=== PATIENT | female | born 1990 | race African-American/Black ===

== ENCOUNTER 2019-04-23 05:30 | Inpatient (IN) ==
[2019-04-23] MEDS ORDERED: KEFZOL 1 GM/D5W 1 GM/50 ML IVPB IV PRN (05:32)
[2019-04-23] MEDS ORDERED: REGLAN PO ONE (05:32)
[2019-04-23] MEDS ORDERED: PEPCID PO ONE (05:32)
[2019-04-23] MEDS: LR 1,000 ML IV SCH ×2 (06:00→06:36)
[2019-04-23 06:05] LABS: URINE SOURCE VOIDED
[2019-04-23 06:15] LABS: BASO# 0.01 X1000 (0.0-0.2); BASO% 0.2 % (0.0-0.8); EOS# 0.04 X1000 (0.0-0.7); EOS% 0.6 % (0.0-10.0); HEMATOCRIT 33.1 % (37.0-47.0); HEMOGLOBIN 10.6 g/dL (12.0-16.0); IMM GRAN# 0.02 X1000 (0.0-0.04); IMM GRAN% 0.3 % (0.0-0.5); LYMPH# 1.92 X1000 (1.2-3.4); LYMPH% 29.4 % (20.5-51.1); MCH 27.5 PG (27-31); MONO# 0.75 X1000 (0.11-0.59); MONO% 11.5 % (1.7-9.3); MPV 12.9 FL (7.4-10.4); NEUT# 3.79 X1000 (1.4-6.5); PLT 124 X1000 (130-400); RBC 3.85 XMIL (4.2-5.4); RDW 14.2 % (11.5-14.5); WBC 6.53 X1000 (4.8-10.8)
[2019-04-23 06:28] LABS: BILIRUBIN URINE NEGATIVE (NEGATIVE); BLOOD URINE NEGATIVE (NEGATIVE); CLARITY CLEAR (CLEAR); COLOR YELLOW; GLUCOSE URINE NEGATIVE (NEGATIVE); KETONE URINE TRACE mg/dL (NEGATIVE); LEUKOCYTES URINE TRACE (NEGATIVE); NITRITE URINE NEGATIVE (NEGATIVE); PH URINE 6.5; PROTEIN URINE TRACE mg/dL (NEGATIVE); SP GRAVITY URINE 1.015; UROBILINOGEN URINE NORMAL
[2019-04-23 06:35] LABS: UR AMPHETAMINES QUAL NONE DETECTED (NONE DETECT); UR BARBITUATES QUAL NONE DETECTED (NONE DETECT); UR BENZODIAZEPIN QUAL NONE DETECTED (NONE DETECT); UR CANNABINOIDS QUAL NONE DETECTED (NONE DETECT); UR COCAINE QUAL NONE DETECTED (NONE DETECT); UR METHADONE QUAL NONE DETECTED (NONE DETECT); UR METHAMPHETAMINE QUAL NONE DETECTED (NONE DETECT); UR OPIATES QUAL NONE DETECTED (NONE DETECT); UR OXYCODONE QUAL NONE DETECTED (NONE DETECT); UR PCP QUAL NONE DETECTED (NONE DETECT); UR PROPOXYPHENE QUAL NONE DETECTED (NONE DETECT); UR TCA QUAL NONE DETECTED (NONE DETECT)
[2019-04-23] MEDS ORDERED: DURAMORPH ONE (07:07)
[2019-04-23] MEDS ORDERED: PITOCIN ONE ×2 (07:35)
[2019-04-23] MEDS ORDERED: TORADOL IV SCH (09:00)
[2019-04-23] MEDS ORDERED: NARCAN INJ PRN (09:15)
[2019-04-23] MEDS ORDERED: ZOFRAN ODT PO PRN (09:15)
[2019-04-23] MEDS ORDERED: ZOFRAN IV PRN ×2 (09:15)
--- NOTE | 2019-04-23 10:30 | HISTORY AND PHYSICAL ---
HISTORY OF PRESENT ILLNESS: Ms. Hamilton is a 28-year-old G4, P-0-0-3 at 38 weeks and 2 days, who presents to Labor and Delivery for scheduled repeat section with bilateral tubal ligation. Patient reports good movement. Denies contractions, leakage of fluid or vaginal bleeding. Current is significant for gestational diabetes, diet controlled, for which patient received serial growth scans via [facility]. Maternal [facility] recommended delivery between 38 and 39 weeks' gestation. PAST MEDICAL HISTORY: Gestational diabetes, diet controlled. PAST SURGICAL HISTORY: delivery x3. OB HISTORY: G4, P 3-0-0-3, 3 full-term C-sections. 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 FAMILY HISTORY: Noncontributory. ALLERGIES: No known drug allergies. SOCIAL HISTORY: Denies tobacco, alcohol, or drug use. MEDICATIONS: vitamins, Valtrex for prophylaxis. VITAL SIGNS: Temperature 97 degrees Fahrenheit, pulse rate 91, respirations 16, blood pressure 152/80, O2 saturation 99% on room air, weight 232 pounds, height 5 feet 8 inches. PHYSICAL EXAMINATION: GENERAL: No acute distress. Alert, awake, oriented x3. CARDIOVASCULAR: Regular rate and rhythm. Positive S1, S2. RESPIRATORY: Clear to auscultation bilaterally. ABDOMEN: Gravid, nontender to palpation, soft. Electronic monitoring category 1 tracing. Tocolysis negative for contractions. EXTREMITIES: No calf tenderness. LABORATORY STUDIES: WBC 6.53, hemoglobin 10.6, hematocrit 33.1, platelets 124,000. Glucose 77. RPR nonreactive. Rubella nonimmune. ASSESSMENT: Ms. Hamilton is a 28-year-old 4, para 3-0-0-3 at 38 weeks and 2 days who presents for repeat delivery with bilateral tubal ligation. PLAN: 1. Admit to Labor and Delivery for repeat and bilateral tubal ligation. 2. IV antibiotics for prophylaxis, routine section labs. 3. Patient counseled on risks of repeat section, not limited to bleeding, infection, injury to surrounding organs including bowel, bladder, ureters, nerves and blood vessels. Patient understands risks and agrees to procedure. Patient also counseled the risks of female sterilization, risks not limited to regret, failure, ectopic . Patient understands risks and agrees to said procedure. 4. Continue with monitoring prior to procedure. 5. Rubella nonimmune. Will receive MMR post delivery. 6. Gestational diabetes, diet controlled. Will monitor blood sugars post procedure.
[2019-04-23] MEDS ORDERED: PITOCIN 20 UNITS/NS 20 UNITS/1,000 ML IV.SOLN ONE (10:31)
[2019-04-23] MEDS: BENADRYL IV PRN ×2 (10:36→22:02)
[2019-04-23] MEDS ORDERED: HYDROXYZINE IM PRN (12:44)
[2019-04-23] MEDS ORDERED: MYLICON PO PRN (12:44)
[2019-04-23] MEDS ORDERED: PITOCIN IM PRN (12:44)
[2019-04-23] MEDS ORDERED: M-M-R II VACCINE SUBQ ONE (12:44)
[2019-04-23] MEDS ORDERED: ATARAX PO PRN (12:44)
[2019-04-23] MEDS ORDERED: DEMEROL IM PRN (12:44)
[2019-04-23] MEDS ORDERED: PITOCIN 20 UNITS/NS 20 UNITS/1,000 ML IV.SOLN IV ONE (12:44)
[2019-04-23] MEDS ORDERED: DULCOLAX PR PRN (12:44)
[2019-04-23] MEDS ORDERED: BOOSTRIX VACCINE IM ONE (12:44)
[2019-04-23] MEDS ORDERED: DEMEROL PO PRN ×2 (12:44)
[2019-04-23] MEDS ORDERED: PHENERGAN IM PRN (12:44)
[2019-04-23] MEDS ORDERED: AMBIEN PO PRN (12:44)
[2019-04-23] MEDS: MYLICON PO SCH ×3 (14:54→21:01)
[2019-04-23] MEDS: PITOCIN 10 UNITS/NS 1,000 ML IV SCH (19:56)
[2019-04-23] MEDS: PERICOLACE PO SCH (21:01)
--- NOTE | 2019-04-23 21:42 | OPERATIVE NOTE ---
PROCEDURE DATE: 04/23/2019 SURGEON: Dr. Radu Foss. COMMUNITY ORGANIZATION AIDE: Dr. Maynor Desai. PREOPERATIVE DIAGNOSES: 1. Intrauterine at 38 weeks and 3 days. 2. Gestational diabetes, diet controlled. 3. Previous delivery x3. 4. Desires female sterilization. POSTOPERATIVE DIAGNOSES: 1. Intrauterine at 38 weeks and 3 days. 2. Gestational diabetes, diet controlled. 3. Previous delivery x3. 4. Desires female sterilization. PROCEDURE PERFORMED: 1. Repeat low transverse delivery. 2. Bilateral tubal ligation. ANESTHESIA: Spinal. ESTIMATED BLOOD LOSS: 750 mL. FINDINGS: A viable male infant, weighing 7 pounds 5 ounces. Apgars 7 and 9 at 1 and 5 minutes. Normal uterus, normal bilateral tubes and ovaries. COMPLICATIONS: None. SURGICAL RISKS: The patient was informed of the risks and benefits of the procedure. The risks included, but were not limited to, bleeding, infection, injury to internal organs and possible hysterectomy. Also discuss risk of bilateral tubal ligation, not limited to regret, failure and ectopic . The patient expressed understanding of the risks involved. All questions were answered and the patient consented to the procedure. DESCRIPTION OF PROCEDURE: The patient was taken to the operating room where a time-out was performed to confirm correct patient and correct procedure. Spinal anesthesia was adequately established, and prophylactic intravenous antibiotics was administered. The patient was placed in the dorsal supine position with a left tilt at the hips. The patient was then prepped and draped in the usual sterile fashion for a Pfannenstiel skin incision. An incision was made in the skin with a surgical scalpel, and sharp dissection was carried out over subsequent layers of tissue, including the fascia followed by the Bovie electrocautery for hemostasis. The fascia was incised at the midline and fascial incision was extended bilaterally using the Bovie electrocautery. The inferior edge of the fascial incision was grasped with Monika clamps, tented up and the underlying rectus muscle was dissected off bluntly with the Bovie electrocautery. Attention was then turned to the superior edge which was grasped with Monika clamps, tented up and the underlying rectus muscles were dissected off using Bovie electrocautery. The rectus muscle was then divided at the midline and the peritoneum was identified, tented up, at its upper margin taking care to avoid the bladder, and then entered bluntly. The peritoneal incision was extended superiorly and inferiorly using the Bovie electrocautery with good hemostasis of the bladder. Anterior abdominal wall adhesions were noted along the anterior aspect of the uterus and removed using the Bovie electrocautery. The bladder blade was inserted and the vesical peritoneum was identified. It was grasped with smooth pickups and cut laterally to both sides using the Metzenbaum scissors. A bladder flap was created using sharp dissection with the Metzenbaum scissors. The bladder blade was reinserted, and a transverse incision was made in the lower uterine segment using the scalpel. The uterine incision was extended bilaterally using blunt dissection. The amniotic sac was entered, and the amniotic fluid was noted to be clear. The surgeon's hand was placed into the uterine cavity. The head was identified, elevated into the abdomen and delivered through the uterine incision with the assistance of fundal pressure. The was examined for nuchal cord. No nuchal cord was identified. The infant was then delivered with traction and assistance of fundal pressure. The 's oral and nasal passages were bulb suctioned on delivery. The cord was clamped and cut. The was then passed off the table to the waiting tyre fitter staff for further care. Cord blood was obtained for analysis and routine blood testing. The placenta was manually extracted intact with a three-vessel cord. Oxytocin was administered by IV infusion to enhance uterine contraction. The uterus was exteriorized and cleared of all clots and remaining products of conception. The uterine incision was reapproximated using 1-0 Monocryl in a running locked fashion. Non-hemostatic areas were reinforced with 1-0 Monocryl in a figure- of-8 stitch. Prior abdominal wall adhesions removed from the anterior surface of the uterus obtain hemostasis using figure-of-8 stitch and 1-0 Monocryl suture as well as 3-0 Vicryl on a SH needle. Good hemostasis was obtained. Attention was then turned to the bilateral tubes. The isthmic portion of the left fallopian tube was grasped and elevated with a Art clamp. A window was created in the mesosalpinx. The distal and proximal end of the tube was individually ligated at the base of the loop using 2-0 chromic. The tube was excised and sent to pathology for confirmation. In a similar fashion, the right tube was grasped at its isthmic portion using a Art clamp. A window was created in the mesosalpinx below the tube. Distal and proximal ends of the tube were individually ligated at the base of the loop using 2-0 chromic suture. The tube was excised and sent to pathology for confirmation. Bleeding was noted at the mesosalpinx on the right tube. Hemostasis was obtained using a Art clamp and 2-0 plain suture was used as a free tie to obtain hemostasis. Good hemostasis was noted once Fertile was removed from the right mesosalpinx area. The uterus was replaced into the abdomen. The pericolic colic gutters were cleared of all clots. Surgicel was applied to the anterior surface of the uterus were prior adhesions were noted to reinforce hemostasis in the area. The fascia was reapproximated using 0 Vicryl in a running nonlocking fashion. The subcutaneous fat was reapproximated using 2-0 plain gut in a running nonlocking fashion. The skin was reapproximated using griffin. All needle, sponge, and instrument counts were noted to be correct x2 at the end of the procedure. The patient tolerated the procedure well and was transferred to the recovery room in stable condition.
[2019-04-23] MEDS: MORPHINE IV PRN (22:00)
[2019-04-24] MEDS: BENADRYL IV PRN (04:21)
[2019-04-24] MEDS: MORPHINE IV PRN (04:21)
[2019-04-24] MEDS: PITOCIN 10 UNITS/NS 1,000 ML IV SCH (04:26)
[2019-04-24 06:10] LABS: HEMATOCRIT 31.4 % (37.0-47.0); HEMOGLOBIN 9.8 g/dL (12.0-16.0); MCH 27.2 PG (27-31); MCHC 31.2 g/dL (33-37); MCV 87.2 FL (81-99); MPV 12.9 FL (7.4-10.4); RBC 3.6 XMIL (4.2-5.4); RDW 14.5 % (11.5-14.5); WBC 8.22 X1000 (4.8-10.8)
--- NOTE | 2019-04-24 08:37 | OB/GYN PROGRESS NOTE ---
Progress Note OB - . Patient Problems: Current Active Problems Problem Status Onset Encounter for sterilization Acute GDM, class A1 Acute Previous section Acute OB Progress Note: Vital Signs - 24 hr 04/23/19 08:40 04/23/19 08:50 04/23/19 09:00 Temperature Pulse Rate 73 69 65 Respiratory Rate 16 16 16 Blood Pressure Blood Pressure [Right Arm] 118/59 119/67 108/68 O2 Sat by Pulse Oximetry 98 98 98 04/23/19 09:15 04/23/19 09:20 04/23/19 09:30 Temperature Pulse Rate 77 60 74 Respiratory Rate 16 16 16 Blood Pressure 116/72 Blood Pressure [Right Arm] 110/69 110/69 116/72 O2 Sat by Pulse Oximetry 97 98 97 04/23/19 12:15 04/23/19 16:10 04/23/19 16:30 Temperature 96.3 F L 97.3 F L Pulse Rate 74 86 Respiratory Rate 16 16 Blood Pressure 140/64 118/68 Blood Pressure [Right Arm] O2 Sat by Pulse Oximetry 98 98 98 04/23/19 20:00 04/23/19 23:00 04/24/19 04:45 Temperature 97.6 F 97.6 F 97.7 F Pulse Rate 91 H 91 H 97 H Respiratory Rate 18 18 18 Blood Pressure 131/77 137/79 143/81 Blood Pressure [Right Arm] O2 Sat by Pulse Oximetry 96 96 99 04/24/19 08:02 Temperature 99.3 F Pulse Rate 102 H Respiratory Rate 18 Blood Pressure 140/81 Blood Pressure [Right Arm] O2 Sat by Pulse Oximetry 99 Laboratory Results - last 24 hr 04/24/19 05:30 WBC 8.22 RBC 3.60 L Hgb 9.8 L Hct 31.4 L MCV 87.2 MCH 27.2 MCHC 31.2 L RDW Std Deviation 14.5 Plt Count 125 L MPV 12.9 H S: Patient without complaints. Resting. Denied fever, chills, N/V, SOB, or chest pain. Pain controlled. Tolerating clears. Has not ambulated or voided yet. Lochia scant. Formula feeding by choice. O: UOP: ~1500cc/8hrs Gen: NAD; AAOx3 CV: RRR Pulm: CTAB; no rhonchi, wheezing, or rales Abd: soft, generalized TTP; some distension noted; active bowel sounds; fundus firm and below umbilicus Incision: dressing clear, dry Ext: no LE TTP; SCDs on and functioning Labs: reviewed A&P: 24yo s/p CD#4 and BTL at 38w2d, 1. POD#1 -Meeting milestones -UOP adequate -Advance diet as tolerated -Ambulate as tolerated -Awaiting spontaneous void 2. GDMA1 -2hr GTT in ~6wks 3. Rubella non-immune -MMR booster
[2019-04-24] MEDS: NORCO-10 PO PRN ×2 (09:26→19:14)
[2019-04-24] MEDS: MOTRIN PO PRN ×2 (09:26→19:14)
[2019-04-24] MEDS: MYLICON PO SCH ×4 (09:26→20:44)
[2019-04-24] MEDS ORDERED: LR 1,000 ML IV SCH (12:44)
[2019-04-24] MEDS: PERICOLACE PO SCH (20:44)
[2019-04-24] MEDS ORDERED: BENADRYL PO ONE (20:51)
--- NOTE | 2019-04-25 07:52 | OB/GYN PROGRESS NOTE ---
Progress Note OB - . Patient Problems: Current Active Problems Problem Status Onset S/P repeat low transverse Acute Previous section Acute GDM, class A1 Acute Encounter for sterilization Acute OB Progress Note: Vital Signs - 24 hr 04/24/19 07:55 04/24/19 08:02 04/24/19 15:01 Temperature 99.3 F 97.1 F L Pulse Rate 98 H 102 H 109 H Respiratory Rate 16 18 18 Blood Pressure 140/81 143/91 O2 Sat by Pulse Oximetry 99 99 99 04/24/19 15:10 04/24/19 19:45 04/24/19 20:57 Temperature 96.9 F L Pulse Rate Respiratory Rate 18 Blood Pressure 142/83 135/79 O2 Sat by Pulse Oximetry 98 99 04/24/19 23:45 04/25/19 06:00 Temperature 97.7 F Pulse Rate 95 H 97 H Respiratory Rate 18 18 Blood Pressure 138/68 130/72 O2 Sat by Pulse Oximetry 98 28 yo POD#2 s/p Rpt C/S with BTL at 38w2d with SARWAT RAUSCH Patient seen and examined. Pain is controlled. She is ambulating and voiding without difficulty. She is passing flatus. She is tolerating regular diet, no nausea/vomiting. She notes minimal lochia. She desires infant circumcision. Discussed R/B/A and that infant circumcision is an elective procedure. She desires to proceed. She desires discharge from the hospital today as well. She is bottle feeding. Physical Exam-General - PHYSICAL EXAM-ADULT Initial Vital Signs Reviewed: Yes - CONSTITUTIONAL General Appearance: appears well, alert, no apparent distress - EYES Eyes: PERRL/EOMI - HEAD, EARS, NOSE, MOUTH & THROAT HENMT: normocephalic/atraumatic - RESPIRATORY Respiratory: lungs clear, normal breath sounds, no respiratory distress - GASTROINTESTINAL (ABDOMEN) Abdominal Exam: normal bowel sounds, soft, tenderness (ATTP, fundus firm, below umbilicus. Incision C/D/I with griffin) - MUSCULOSKELETAL Extremity: normal range of motion, non-tender - PSYCHIATRIC Psych/Mental Status: normal mood/affect Assessment/Plan - Assessment/Plan Assessment: 28 yo POD#2 s/p Rpt C/S with BTL with GERARDO RAUSCHI 1. HD stable, PP Hgb 9.8 2. BTL for PP contraception 3. Desires elective infant circumcision 4. Encourage ambulation 5. MMR vaccine prior to discharge 6. D/C today, return in 7 days for staple removal
[2019-04-25] MEDS: NORCO-10 PO PRN ×2 (08:00→15:01)
[2019-04-25] MEDS: MOTRIN PO PRN (08:01)
[2019-04-25] MEDS: MYLICON PO SCH ×2 (08:02→13:45)
[2019-04-25] MEDS ORDERED: PRECARE PO SCH (09:00)
[2019-04-25] MEDS ORDERED: FLU VACCINE IM ONE (12:30)
[2019-04-25 13:12] VITALS: BP 132/84
--- NOTE | 2019-04-26 22:23 | DISCHARGE SUMMARY ---
ADMISSION DATE: 04/23/2019 DISCHARGE DATE: 04/25/2019 ADMITTING PHYSICIAN: Dr. Radu Foss. CONDITION ON DISCHARGE: Stable. FINAL DIAGNOSES: 1. A 28-year-old, 4, para 4-0-0-4, postoperative day #2, status post repeat section with bilateral tubal ligation at 38 weeks and 2 days. 2. A1 gestational diabetic, diet controlled. 3. Rubella nonimmune. HOSPITAL COURSE: The patient was admitted on April 23, for a scheduled repeat section and tubal ligation. This was performed on April 23, and was uncomplicated. She had a routine postoperative course. On postoperative day #2, she was meeting her postoperative milestones. She was ambulating and voiding without difficulty. Her pain was controlled and she was passing flatus. She noted normal lochia. On postoperative day #2, she was deemed stable for discharge. She desired circumcision and this was performed prior to discharge. She received MMR vaccine prior to hospital discharge for her rubella nonimmune status. DISCHARGE MEDICATIONS: 1. Motrin 800 mg p.o. q.8 hours p.r.n. pain. 2. Percocet 10/325 p.o. q.4-6 hours p.r.n. pain. 3. Colace 100 mg p.o. b.i.d. p.r.n. constipation. DISCHARGE INSTRUCTIONS: Notify doctor with temperature greater than 100.4 degrees Fahrenheit, vaginal bleeding greater than a pad an hour, foul-smelling discharge, severe abdominal pain, persistent nausea or vomiting. Place nothing in the vagina for 6 weeks, no tampons/douching/sex. FOLLOW-UP APPOINTMENTS: Patient will follow up in clinic in one week for staple removal.
== END 2019-04-25 16:13 | disposition home or self-care (01) | DRG 785 ==
LOC: P.LD 05:30
PROVIDERS: ADMIT Obstetrics & Gynecology; ATTEND Obstetrics & Gynecology